=== PATIENT | male | born 1990 | race Two or more races ===

== ENCOUNTER 2017-03-15 18:09 | Emergency (ER) | payer SELFPAY ==
--- NOTE | 2017-03-15 20:21 | ER Document Report ---
ED Medical Screen (RME) - General Chief Complaint: Headache Stated Complaint: HEAD PAIN Time Seen by Provider: 03/15/17 20:19 Information source: Patient Notes: 26-year-old male with a history possibly of Tourette's syndrome who presents after moving here from [place] March 11. Translation is through a relative as the patient and he speaks Scottish. Patient states that he was diagnosed with "convulsions and Tourette's" by a neurologist in [place]. Patient states he also sees a psychiatrist who has prescribed multiple medications that he currently has a list of in a folder. Patient states he left these medications in [place] accidentally. Patient states he has had 2 days of a mild frontal nonradiating headache. Patient states even with the medications he was taking he feels as if his convulsions have increased. Patient denies any fevers, head trauma, nausea, vomiting, weakness or numbness. On examination the patient is oriented 4. He has having involuntary convulsions of his head and extremities. CN II through XII are intact. 5 out of 5 bilateral upper and lower extremity strength. Heart and lung examination is unremarkable. Given the above history and physical with no prior imaging according the patient , we will obtain a CT scan of the head as well as basic labs and hepatic function panel. I will provide a milligram of Klonopin at this time. TRAVEL OUTSIDE OF THE [place] IN LAST 30 DAYS: No - Related Data Allergies/Adverse Reactions: No Known Allergies Allergy (Verified 03/15/17 18:11) Physical Exam - Vital signs Vitals: Temp Pulse Resp BP Pulse Ox 98.4 F 96 18 168/101 H 96 03/15/17 18:19 03/15/17 18:19 03/15/17 18:19 03/15/17 18:19 03/15/17 18:19 Course - Vital Signs Vital signs: Temp Pulse Resp BP Pulse Ox 98.4 F 96 18 168/101 H 96 03/15/17 18:19 03/15/17 18:19 03/15/17 18:19 03/15/17 18:19 03/15/17 18:19
[2017-03-15] MEDS ORDERED: CLONAZEPAM 1 MG TABLET PO ONE (20:22)
--- NOTE | 2017-03-15 21:22 | RADIOLOGY REPORT (SQ) ---
EXAM DESCRIPTION: CT HEAD WITHOUT COMPLETED DATE/TIME: 03/15/2017 8:59 pm REASON FOR STUDY: PIT; headache and involuntary movements COMPARISON: None. TECHNIQUE: Axial images acquired through the brain without intravenous contrast. Images reviewed wi th bone, brain and subdural windows. Images stored on PACS. All CT scanners at this facility use dose modulation, iterative reconstruction, and/or weight based d osing when appropriate to reduce radiation dose to as low as reasonably achievable (ALARA). [facility]: Dose Right [facility]: CareDose [facility]: Dose Right [facility]: Teradose 4D [facility]: [employer] RADIATION DOSE: CT Rad equipment meets quality standard of care and radiation dose reduction techniq ues were employed. CTDIvol: 64.6 mGy. DLP: 1163 mGy-cm. mGy. LIMITATIONS: None. FINDINGS: VENTRICLES: Normal size and contour. CEREBRUM: No masses. No hemorrhage. No midline shift. No evidence for acute infarction. Normal gra y/white matter differentiation. No areas of low density in the white matter. CEREBELLUM: No masses. No hemorrhage. No alteration of density. No evidence for acute infarction. EXTRAAXIAL SPACES: No fluid collections. No masses. ORBITS AND GLOBE: No intra- or extraconal masses. Normal contour of globe without masses. CALVARIUM: No fracture. PARANASAL SINUSES: No fluid or mucosal thickening. SOFT TISSUES: No mass or hematoma. OTHER: No other significant finding. IMPRESSION: NORMAL BRAIN CT WITHOUT CONTRAST. EVIDENCE OF ACUTE STROKE: NO. COMMENT: Quality ID # [id number]: Final reports with documentation of one or more dose reduction techniques (e.g., Automated exposure control, adjustment of the mA and/or kV according to patient size, use of iterative reconstruction technique) TECHNICAL DOCUMENTATION: JOB ID: [id number] [employer]- All Rights Reserved
[2017-03-15] MEDS ORDERED: NORMAL SALINE 1000 ML 1,000 ML IV ONE (21:33)
[2017-03-15] MEDS ORDERED: HALOPERIDOL LACTATE INJ 5 MG/1 ML VIAL IV ONE (21:34)
[2017-03-15 22:26] LABS: ABSOLUTE BASOPHILS # (AUTO) 0.1 10^3/uL (0.0-0.2); ABSOLUTE EOSINOPHILS # (AUTO) 0.2 10^3/uL (0.0-0.6); ABSOLUTE LYMPHOCYTES (AUTO) 3.2 10^3/uL (0.5-4.7); ABSOLUTE MONOCYTES (AUTO) 0.7 10^3/uL (0.1-1.4); ABSOLUTE NEUT (AUTO) 6.6 10^3/uL (1.7-8.2); BASOPHILS % (AUTO) 0.9 % (0-2); EOSINOPHILS % (AUTO) 1.5 % (0-6); HEMOGLOBIN 16.9 g/dL (13.5-17.0); LYMPHOCYTES % (AUTO) 30.1 % (13-45); MEAN CORPUSCULAR HEMOGLOBIN 32.9 pg (27.0-33.4); MEAN CORPUSCULAR HGB CONC 35.9 g/dL (32.0-36.0); MEAN CORPUSCULAR VOLUME 91 fl (80-97); MONOCYTES % (AUTO) 6.4 % (3-13); PLATELET COUNT 360 10^3/uL (150-450); RED BLOOD COUNT 5.14 10^6/uL (4.35-5.55); RED CELL DISTRIBUTION WIDTH 12.6 % (11.5-14.0); SEGMENTED NEUTROPHILS % (AUTO) 61.1 % (42-78); TOTAL CELLS COUNTED % (AUTO) 100 %; WHITE BLOOD COUNT 10.7 10^3/uL (4.0-10.5)
[2017-03-15 22:44] LABS: ALANINE AMINOTRANSFERASE 100 U/L (21-72); ALBUMIN 4.5 g/dL (3.5-5.0); ALKALINE PHOSPHATASE 72 U/L (38-126); ANION GAP 13 (5-19); ASPARTATE AMINO TRANSFERASE 48 U/L (17-59); BILIRUBIN,DIRECT 0.3 mg/dL (0.0-0.4); BILIRUBIN,TOTAL 0.5 mg/dL (0.2-1.3); BLOOD UREA NITROGEN 17 mg/dL (7-20); CALCIUM 9.9 mg/dL (8.4-10.2); CARBON DIOXIDE 28 mmol/L (22-30); CHLORIDE 100 mmol/L (98-107); GLUCOSE 118 mg/dL (75-110); POTASSIUM 4.1 mmol/L (3.6-5.0); SODIUM 140.9 mmol/L (137-145); TOTAL PROTEIN 7.8 g/dL (6.3-8.2)
[2017-03-15] MEDS ORDERED: DIPHENHYDRAMINE HCL 50 MG/ML VIAL IV ONE (23:04)
--- NOTE | 2017-03-15 23:06 | ER Document Report ---
ED General - General Chief Complaint: Headache Stated Complaint: HEAD PAIN Time Seen by Provider: 03/15/17 20:19 TRAVEL OUTSIDE OF THE [place] IN LAST 30 DAYS: No - Related Data Allergies/Adverse Reactions: No Known Allergies Allergy (Verified 03/15/17 18:11) Past Medical History - General Information source: Patient - Social History Smoking Status: Never Smoker Patient has suicidal ideation: No Patient has homicidal ideation: No Renal/ Medical History: Denies: Hx Peritoneal Dialysis Physical Exam - Vital signs Vitals: Temp Pulse Resp BP Pulse Ox 98.4 F 96 18 168/101 H 96 03/15/17 18:19 03/15/17 18:19 03/15/17 18:19 03/15/17 18:19 03/15/17 18:19 Course - Re-evaluation Re-evalutation: 03/15/17 23:00 Patient presents with headache with associated involuntary movements of his bilateral upper extremities. Patient reports resolution of his headache receiving a migraine cocktail here in the emergency room but does note some ongoing mild involuntary movements. He states the symptoms observe for the last several days and he was started on risperidone within the last 3 weeks. I provided the patient Benadryl does seem to improve his symptoms. Concern for possible extrapyramidal symptoms in the setting of risperidone. I have instructed the patient to begin using Benadryl as needed for the symptoms and I also informed him that he needs a follow-up with a psychiatrist who prescribed these medications to clarify if they would like to make a medication change given that he appears to be having some extrapyramidal symptoms. CT the head and labs obtained in triage are noted to be unremarkable. Patient has no focal neurologic deficits on examination. I do not suspect acute seizures, CVA, or intracranial injury. At this time will discharge with return precautions and follow-up recommendations. Verbal discharge instructions given a the bedside and opportunity for questions given. Medication warnings reviewed. Patient is in agreement with this plan and has verbalized understanding of return precautions and the need for primary care follow-up in the next 24-72 hours. - Vital Signs Vital signs: Temp Pulse Resp BP Pulse Ox 98.4 F 96 18 168/101 H 96 03/15/17 18:19 03/15/17 18:19 03/15/17 18:19 03/15/17 18:19 03/15/17 18:19 - Laboratory Result Diagrams: 03/15/17 22:10 03/15/17 22:10 Laboratory results interpreted by me: 03/15/17 03/15/17 22:10 22:10 WBC 10.7 H Glucose 118 H ALT 100 H - Diagnostic Test Radiology reviewed: Image reviewed, Reports reviewed Radiology results interpreted by me: 03/15/17 23:01 CT head: No acute intracranial bleed Discharge - Discharge Clinical Impression: Extraparametal movements, Involuntary movements Condition: Good Disposition: HOME, SELF-CARE Additional Instructions: Your symptoms may be related to the medication that you are taking called risperidone. The symptoms are called expiratory foraminal movements and can be a side effect of antipsychotic medications. Please do not discontinue this medication without speaking to her psychiatrist first as they will likely wish to adjust your medications or change you to a different medication. You may take diphenhydramine also known as Benadryl 25-50 mg every 6 hours as needed for symptoms of involuntary movements. CT of your head and your labs are normal today. Return to the emergency department for any additional concerns you may have.
[2017-03-15 23:50] VITALS: BP 122/77
--- NOTE | 2017-03-16 04:01 | ER Document Report ---
ED General - General Chief Complaint: Headache Stated Complaint: HEAD PAIN Time Seen by Provider: 03/15/17 20:19 Notes: Patient is a 26-year-old male with past medical history of anxiety, depression, and reportedly Tourette syndrome who presents with 3-4 days of involuntary movements. Patient reports that these started in the past 3-4 days. He denies a history of similar symptoms in the past. Nothing seems to improve or worsen the symptoms. Patient reports that he has been taking prescribed antipsychotic medications contrary to the triage assessment note. Patient also reports a dull , constant, throbbing headache. This is been present for approximately 3-4 days. Nothing improves or worsens his headache. He reports a history of similar headaches in the past. He denies any head trauma, fever, confusion, weakness or numbness. He has not seen a primary care doctor regarding today's concerns. The history and physical exam was obtained by the provider using Estonian. A formal hospital dairy processing equipment operator was offered to the patient and any family at the bedside at the beginning of the encounter and was declined. TRAVEL OUTSIDE OF THE [place] IN LAST 30 DAYS: No - Related Data Allergies/Adverse Reactions: No Known Allergies Allergy (Verified 03/15/17 18:11) Past Medical History - General Information source: Patient - Social History Smoking Status: Never Smoker Frequency of alcohol use: None Drug Abuse: None Lives with: Family Family History: Reviewed & Not Pertinent Patient has suicidal ideation: No Patient has homicidal ideation: No Renal/ Medical History: Denies: Hx Peritoneal Dialysis Review of Systems - Review of Systems Notes: Constitutional: Negative for fever. HENT: Negative for sore throat. Eyes: Negative for visual changes. Cardiovascular: Negative for chest pain. Respiratory: Negative for shortness of breath. Gastrointestinal: Negative for abdominal pain, vomiting or diarrhea. Genitourinary: Negative for dysuria. Musculoskeletal: Negative for back pain. Skin: Negative for rash. Neurological: Positive for headache and involuntary movements 10 point ROS negative except as marked above and in HPI. Physical Exam - Vital signs Vitals: Temp Pulse Resp BP Pulse Ox 98.4 F 96 18 168/101 H 96 03/15/17 18:19 03/15/17 18:19 03/15/17 18:19 03/15/17 18:19 03/15/17 18:19 Interpretation: Hypertensive Notes: PHYSICAL EXAMINATION: GENERAL: Well-appearing, well-nourished and in no acute distress. HEAD: Atraumatic, normocephalic. EYES: Pupils equal round and reactive to light, extraocular movements intact, sclera anicteric, conjunctiva are normal. ENT: nares patent, oropharynx clear without exudates. Moist mucous membranes. NECK: Normal range of motion, supple without lymphadenopathy LUNGS: Breath sounds clear to auscultation bilaterally and equal. No wheezes rales or rhonchi. HEART: Regular rate and rhythm without murmurs ABDOMEN: Soft, nontender, normoactive bowel sounds. No guarding, no rebound. No masses appreciated. EXTREMITIES: Normal range of motion, no pitting or edema. No cyanosis. NEUROLOGICAL: Face symmetric. Tongue protrudes midline. Extraocular motions intact. Pupils are 2 mm and equally reactive. Normal speech, normal gait. 5 out of 5 strength in both the distal and proximal upper and lower extremities bilaterally. Sensation is grossly intact throughout. Finger to nose testing normal. Pronator drift normal. PSYCH: Somewhat anxious SKIN: Warm, Dry, normal turgor, no rashes or lesions noted. Course - Re-evaluation Re-evalutation: 03/16/17 04:00 Patient presents with headache with associated involuntary movements of his bilateral upper extremities. Patient reports resolution of his headache receiving a migraine cocktail here in the emergency room but does note some ongoing mild involuntary movements. He states the symptoms observe for the last several days and he was started on risperidone within the last 3 weeks. I provided the patient Benadryl does seem to improve his symptoms. Concern for possible extrapyramidal symptoms in the setting of risperidone. I have instructed the patient to begin using Benadryl as needed for the symptoms and I also informed him that he needs a follow-up with a psychiatrist who prescribed these medications to clarify if they would like to make a medication change given that he appears to be having some extrapyramidal symptoms. CT the head and labs obtained in triage are noted to be unremarkable. Patient has no focal neurologic deficits on examination. I do not suspect acute seizures, CVA, or intracranial injury. At this time will discharge with return precautions and follow-up recommendations. Verbal discharge instructions given a the bedside and opportunity for questions given. Medication warnings reviewed. Patient is in agreement with this plan and has verbalized understanding of return precautions and the need for primary care follow-up in the next 24-72 hours. - Vital Signs Vital signs: Temp Pulse Resp BP Pulse Ox 98.4 F 75 16 122/77 95 03/15/17 18:19 03/15/17 23:49 03/15/17 23:49 03/15/17 23:49 03/15/17 23:49 - Laboratory Result Diagrams: 03/15/17 22:10 03/15/17 22:10 Laboratory results interpreted by me: 03/15/17 03/15/17 22:10 22:10 WBC 10.7 H Glucose 118 H ALT 100 H Discharge - Discharge Clinical Impression: Extraparametal movements, Involuntary movements Condition: Good Disposition: HOME, SELF-CARE Additional Instructions: Your symptoms may be related to the medication that you are taking called risperidone. The symptoms are called expiratory foraminal movements and can be a side effect of antipsychotic medications. Please do not discontinue this medication without speaking to her psychiatrist first as they will likely wish to adjust your medications or change you to a different medication. You may take diphenhydramine also known as Benadryl 25-50 mg every 6 hours as needed for symptoms of involuntary movements. CT of your head and your labs are normal today. Return to the emergency department for any additional concerns you may have.
== END 2017-03-16 | disposition home or self-care (01) ==
LOC: ER 18:09
DX: R25.9 Unspecified abnormal involuntary movements (principal); R51 Headache
CPT/HCPCS: 99284; 96361; 96374; 96375; 36415; 85025; 80053; 70450; J1200; J1630; J7030